=== PATIENT | female | born 1995 | race Asian ===

== ENCOUNTER 2025-02-07 19:10 | Emergency (ER) | payer OTHER, SELFPAY ==
[2025-02-07 19:11] VITALS: BP 119/82
--- NOTE | 2025-02-07 21:27 | ED.GENMED ---
History of Present Illness
General
Chief Complaint: Skin Problem
Source: patient and family
Exam Limitations: none
Time Seen by Provider: 02/07/25 20:50
Nursing documentation reviewed up to this point in time: agreed with
History of Present Illness
History of Present Illness:
30-year-old female with history of insulin-dependent diabetes presents with her family for evaluation of abscess. Patient reports that over the past few days she has been developing a 'boil' in the right mid back. She says it is becoming
increasingly swollen and painful and has had occasional drainage and so she came to the ER for evaluation. She has not had fevers or chills or any other issues. She is a known diabetic and is on insulin and compliant but sugars have been running
high recently she believes due to this infection. She did have similar infection in the past requiring incision and drainage.
Review of Systems
Review of Systems
All Other Systems: ROS reviewed and negative except as documented in HPI and ROS
Constitutional: Denies fever or chills
Skin: Reports other (Abscess)
Phy Exam
Physical Exam
Physical Exam:
General: Well appearing and non-toxic
HEENT: protecting airway
Neck: appears supple
CV: No evidence of cyanosis
Resp: No accessory muscle use
Abd: Non-distended
Extremities: No deformities
Neuro: Alert
Psych: Normal affect
Skin: Patient has abscess right middle back slightly right of midline�there is approximately 6 cm circumference area of erythema that is indurated with fluctuance in the center, tenderness to the touch
Scores
Heart Failure Risk
Heart Failure Risk Score: Not Applicable
Heart Score for Chest Pain Patients
STEMI patient?: Not applicable
Withdrawal Assessment of Alcohol
Withdrawal Assessment Completed?: Not applicable
Course
Orders/Labs/Results
Orders:
Orders
02/07/25 21:25
Bedside Glucose- Treatment ONCE
Wound Culture [Wound/Abscess/Other Culture] Urgent
FELIX Source: Back
Specimen Description:
Amoxicillin 875 mg/Clav 125 mg [Augmentin 875 mg/125 mg] 1 tablet PO NOW STA
Doxycycline [Vibramycin] 100 mg PO NOW STA
Vital Signs
Initial and Last Documented VS:
Initial Vital Signs
Temp Pulse Resp BP Pulse Ox
36.7 C 93 16 119/82 98
02/07/25 19:11 02/07/25 19:11 02/07/25 19:11 02/07/25 19:11 02/07/25 19:11
Last Documented Vital Signs
Temp Pulse Resp BP Pulse Ox
36.7 C 93 16 119/82 98
02/07/25 19:11 02/07/25 19:11 02/07/25 19:11 02/07/25 19:11 02/07/25 19:11
Procedures
Incision/Drainage/Joint Aspiration
Middle Back:
Anethesia: 1% Lidocaine with Epi
Preparation: cleaned with alcohol wipe
Type of procedure: incise and drain
Nature of site: abscess
Description of abscess: less than 3cm
Loculations broken up: Yes
How much fluid was obtained?: small amount
Fluid description: purulent
Treatment: left open for drainage
MDM/Problems Addressed
Differential Diagnosis Includes:
Abscess, cellulitis
MDM/Problems Addressed:
30-year-old female with known diabetes presents with abscess in the right mid back. Vitals and exam as above. She is hyperglycemic here due for her evening insulin. I&D performed at bedside, culture of purulent material sent off. Will start on
antibiotics�will cover with Augmentin as well as doxycycline for MRSA coverage. I had a long discussion with patient advised to watch her blood sugar closely, to take photos of the area and perform regular dressing changes. Advised to return if
symptoms or not improving with antibiotics or if they are worsening at any point. Patient and family very comfortable with this. All questions answered.
Chronic conditions affecting care:
Insulin-dependent diabetes
*Pulse Oximetry
SaO2: 98
Oxygen Mode of Delivery: Room air
Patient hypoxic: no (98%)
*Critical Care Note
Total Time (30-74mins, 75-104mins- exclusive of procedures): Not Applicable
Data Reviewed
Source: patient and family
ED Attending Note
-
Portions of this chart may have been created with voice recognition software.� Occasional wrong word or��sound alike� substitutions may have occurred due to the inherent limitations of voice recognition software.
Discharge Plan
Departure
Patient Disposition: Home (Routine Discharge)
Date of Disposition: 02/07/25
Time of Disposition: 21:26
Patient with high blood pressure during this ER visit?: No
Discharge Problem:
Abscess
Instructions: Skin Abscess
Prescriptions:
New
amoxicillin-pot clavulanate 875-125 mg tablet
1 tab PO BID Qty: 14 0RF
doxycycline hyclate 100 mg capsule
100 mg PO BID Qty: 14 0RF
Referrals:
Cee Shen MD [Family Provider] - Follow up in 5-7 days
Activity Restrictions/Additional Instructions:
Please return if the area becomes more swollen, painful, red or if it is not improving after a few days of antibiotics. You should also return with fever or any other concerning symptoms. Otherwise you should follow-up with your primary doctor
within the next week to have the area rechecked.
Thank you for visiting the Emergency Department at [facility].
1. Please schedule a follow up appointment as directed. Call first thing tomorrow morning to make an appointment.
2. If indicated, please take your medications as instructed and indicated on discharge paperwork.
3. If any of your symptoms do not improve, or persist, or become more severe within 6-12 hours, please return to the emergency department for further care.
4. Please return to the emergency department if you develop a headache, neck pain/stiffness, fever greater than 100.4F, chest pain, shortness of breath, persistent nausea, vomiting, slurred speech, difficulty walking, numbness/tingling, weakness,
signs of infection or any other symptoms that are worrisome to you.
Please call [phone] if you have any questions.
Discharge Date and Time
Print Language: [place]
[2025-02-07 21:28] LABS: Glucose - Point of Care 238 mg/dl (70-99)
[2025-02-07] MEDS: VIBRAMYCIN 100 MG PO (21:36)
[2025-02-07] MEDS: AUGMENTIN 875 MG/125 MG 1 TABLET PO (21:36)
== END 2025-02-07 21:56 | disposition home or self-care (01) ==
LOC: EMR 19:10
PROVIDERS: EMERGENCY PHYSICIAN Emergency Medicine; FAMILY PHYSICIAN Family Medicine
DX: L02.212 Cutaneous abscess of back [any part, except buttock and flank] (principal); E10.65 Type 1 diabetes mellitus with hyperglycemia; Z79.4 Long term (current) use of insulin
CPT/HCPCS: 99283; 10060; 82962; 87070; 87205